=== PATIENT | female | born 1985 | race Caucasian/White ===

== ENCOUNTER 2017-01-03 09:57 | Emergency (ER) | payer OTHER ==
[~2017-01-03] VITALS: Ht 157.5 cm; Wt 50.0 kg
[2017-01-03 10:04] VITALS: BP 111/61; PULSE 63; RESP 16; TEMP 98; O2SAT 100
--- NOTE | 2017-01-03 11:00 | PD ---
HPI Chief Complaint: Foreign Body Time Seen by Provider: 10:34 Travel History International Travel<30 days: No Contact w/Intl Traveler<30days: No Traveled to known affect area: No History of Present Illness HPI This patient came to the ER because she felt a metallic foreign body and her scalp. She had a craniotomy in 2005 and afterwards her mark anthony were removed she was told. However she now thinks that some more left behind. She is not having headache or any acute injury. She feels well. Symptom severity is mild PFSH Past Medical History Hx Anticoagulant Therapy: No Cancer: Yes (BRAIN) Diabetes: No ?: Not Past Surgical History Other Surgery: Yes (CRIANOTOMY 2003 AND 2005) Social History Alcohol Use: Yes (SOCIALLY) Tobacco Use: No Substance Use: No Allergies-Medications (Allergen,Severity, Reaction): Coded Allergies: No Known Allergies (Unverified , 01/03/17) Reported Meds & Prescriptions Reported Meds & Active Scripts Active No Active Prescriptions or Reported Medications Review of Systems General / Constitutional: No: Fever HENT: No: Headaches Cardiovascular: No: Chest Pain or Discomfort Respiratory: No: Cough Physical Exam Narrative NECK: Symmetrical appearance, midline trachea. No mass or crepitus. Thyroid without enlargement, tenderness, or mass. Psych: Normal mood and affect. Normal insight and judgment. 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 There is a 2 mm section of bright silver metallic object visible under her scar which does look like a staple. By palpation it seems like there is a second staple next to it. It's an area where there is very little skin and tissue overlying the skull. Data Data Last Documented VS Vital Signs Date Time Temp Pulse Resp B/P Pulse Ox O2 Delivery O2 Flow Rate FiO2 01/03/17 10:04 98.0 63 16 111/61 100 MDM Medical Decision Making Medical Screen Exam Complete: Yes Emergency Medical Condition: Yes Medical Record Reviewed: Yes Differential Diagnosis Retained staple, foreign body, dehiscence Narrative Course I have reviewed the patient's electronic medical record. Discussed options with the patient. 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 Choice #1 is to inject lidocaine and open up the area with a scalpel and try to remove the mark anthony and see what is going on in the region. Choice #2 is to follow up with plastic surgery to have this done. Patient would like to follow up with plastic surgery. There is no emergency to doing this today. No sign of infection. The mark anthony have been in for 11 years now Diagnosis Primary Impression: Foreign body of scalp Qualified Code: S00.05XA - Foreign body of scalp, initial encounter Additional Instructions: Follow-up with plastic surgery as outpatient Med/Other Pt SpecificInfo: Other Scripts No Active Prescriptions or Reported Meds Disposition: 01 DISCHARGE HOME Condition: Stable Soto Jesus MD January 03, 2017 10:59
[2017-02-22] MEDS ORDERED: MULTTAB27 PO (09:54)
[2017-02-22] MEDS ORDERED: CYAN1TAB24 SL (09:54)
[2017-02-22] MEDS ORDERED: CALC500T35 PO (09:54)
== END 2017-01-03 11:15 | disposition home or self-care (01) ==
LOC: PHEFT 09:57
DX: S00.05XA Superficial foreign body of scalp, initial encounter (principal); T81.598A Other complications of foreign body accidentally left in body following other procedure, initial encounter; W45.8XXA Other foreign body or object entering through skin, initial encounter; Y93.89 Activity, other specified; Y92.89 Other specified places as the place of occurrence of the external cause; Y99.8 Other external cause status
CPT/HCPCS: 99282